=== PATIENT | male | born 1970 | race Caucasian/White ===

== ENCOUNTER 2021-09-18 09:14 | Outpatient (CLI) | payer MEDICARE, MEDICAID, SELFPAY ==
--- NOTE | 2021-09-18 09:00 | RT.EKG_ITS ---
APPROVED REPORT Exam: Resting ECG Reason for Exam: Chest discomfort Patient Location: O HR:80 bpm ECG Measurements Heart Rate 80 AXIS [place] 135 P 57 QRSd 91 QRS 14 QT 376 T 67 QTc 434 Conclusion Sinus rhythm...normal P axis, V-rate 60- 99 Normal Electrocardiogram
== END 2021-09-18 09:15 | disposition home or self-care (01) ==
LOC: DI.CM 09:16
PROVIDERS: PCP Nurse Practitioner Family; Visit Provider Nurse Practitioner Family
DX: R07.89 Other chest pain (principal)
CPT/HCPCS: 93010

== ENCOUNTER 2021-09-18 19:30 | Outpatient (REF) | payer MEDICARE, MEDICAID, SELFPAY ==
[2021-09-18 13:00] LABS: ALT 45 U/L (16-63); AST 31 U/L (15-37); Albumin 4.3 g/dL (3.4-5.0); Alkaline Phosphatase 92 U/L (46-116); Anion Gap 14.9 mmol/L (3-11); BUN 8 mg/dL (7-18); Bilirubin, Total 0.5 mg/dL (0.2-1.0); CO2 23.1 mmol/L (21.0-32.0); Calcium 9.4 mg/dL (8.5-10.1); Calculated LDL 110 mg/dL (<100); Chloride 104 mmol/L (98-107); Cholesterol 198 mg/dL (<200); Glucose 117 mg/dL (74-106); HDL Cholesterol 72 mg/dL (40-60); Potassium 4.3 mmol/L (3.5-5.1); Sodium 142 mmol/L (136-145); TSH 5.77 uIU/mL (0.36-3.74); Total Protein 7.1 g/dL (6.4-8.2); Triglyceride 80 mg/dL (<150)
== END 2021-09-18 19:31 | disposition home or self-care (01) ==
LOC: LBN 19:30
PROVIDERS: PCP Nurse Practitioner Family; Visit Provider Nurse Practitioner Family
DX: I10 Essential (primary) hypertension (principal); E78.2 Mixed hyperlipidemia; R00.0 Tachycardia, unspecified
CPT/HCPCS: 80053; 80061; 84443

== ENCOUNTER 2021-10-15 11:09 | Emergency (ER) | payer MEDICARE, MEDICAID, SELFPAY ==
[2021-10-15] VITALS (44 sets, daily range): BP systolic 114–203; BP diastolic 67–100; PULSE 72–125; RESP 16–41; TEMP 36.6–37.6; O2SAT 94–100
--- NOTE | 2021-10-15 11:00 | RT.EKG_ITS ---
APPROVED REPORT Exam: Resting ECG Reason for Exam: chest pain Patient Location: E HR:118 bpm ECG Measurements Heart Rate 118 AXIS [place] 176 P 67 QRSd 92 QRS 14 QT 318 T 81 QTc 446 Conclusion Sinus tachycardia...rate> 99 Atrial premature complex...SV complex w/ short R-R interval sinus tachycardia, left axis
--- NOTE | 2021-10-15 11:30 | DI.RAD_ITS ---
Exam(s) XR PORTABLE CHEST AP EXAM: XR PORTABLE CHEST AP CLINICAL HISTORY: chest pain, tachycardia. TECHNIQUE: 2D digital imaging was performed. COMPARISON: No exams were available for comparison FINDINGS: Single AP portable view. Heart size is upper normal. The mediastinum is not widened. Lungs are clear. No infiltrates nor obvious pleural effusions. IMPRESSION: No acute pulmonary findings on this single AP portable view of the chest. DATA REPOSITORY: RADIATION DOSE DELIVERED: All CT scans at this facility use at least one of these dose optimization techniques: automated exposure control; mA and/or kV adjustment per patient size (includes targeted e xams where dose is matched to clinical indication); or iterative reconstruction.
[2021-10-15] MEDS: Normal Saline 500 ML 1000 ML IV (11:43)
[2021-10-15] MEDS: Aspirin 325 MG TAB PO (11:48)
[2021-10-15] MEDS: LORazepam 2 MG/ML VIAL IVP (11:48)
[2021-10-15 11:50] LABS: Abs Immature Grans 0.05 10^3/uL (0.0-0.06); Absolute Basophil Count 0.07 10^3/uL (0.0-0.2); Absolute Eosinophil Count 0.02 10^3/uL (0.0-0.7); Absolute Lymphocyte Count 1.97 10^3/uL (1.2-3.4); Absolute Monocyte Count 0.82 10^3/uL (0.1-0.8); Absolute Neutrophil Count 8.46 10^3/uL (1.2-6.7); Basophils % 0.6; Eosinophils % 0.2; HCT 46.6 % (40.0-50.0); Immature Grans % 0.4; Lymphocytes % 17.3; MCH 30.6 pg (27.0-33.0); MCHC 34.3 % (32.0-36.0); MCV 89.1 fL (80-95); MPV 9.4 fL (8.0-11.0); Monocytes % 7.2; Neutrophils % 74.3; Nucleated RBC 0 %; Platelet Count 306 10^3/uL (130-400); RBC 5.23 10^6/uL (4.36-5.78); RDW 12.4 % (11.8-14.1); RDW-SD 40.7 fL; WBC 11.39 10^3/uL (4.4-10.8)
--- NOTE | 2021-10-15 11:57 | ED.GENADUL_ITS ---
Discharge Plan Disposition Patient Disposition: HOME Condition: Improving Discharge Details Chief Complaint: Chest Pain Clinical Impression: Tachycardia, Dehydration, Alcohol withdrawal Primary Care Provider: Binu Douglas ED Provider: Juan Shultz Home Meds and New Rx's Prescriptions: No Action atenolol 50 mg tablet 75 mg PO DAILY Qty: 90 4RF omeprazole 20 mg capsule,delayed release(DR/EC) 20 mg PO DAILY Qty: 30 0RF lisinopril 20 mg tablet 20 mg PO DAILY Qty: 30 0RF buspirone 7.5 mg tablet 7.5 mg PO BID Qty: 30 0RF simvastatin 40 mg tablet 40 mg PO DAILY 90 Days Qty: 90 4RF levothyroxine 100 mcg tablet 100 mcg PO DAILY Qty: 90 0RF Discharge Instructions Instructions: Dehydration (ED), Alcohol Withdrawal (ED) Additional Instructions: Please return to the emergency department for worsening symptoms specifically worsening chest pain shakes/jitteriness, worsening dehydration trouble breathing or any other abnormal symptoms. Please be seen by your primary care doctor. Be sure to stay hydrated and eat well. Medical Decision Making 51-year-old male history of hypertension alcohol abuse hyperlipidemia hypothyroidism presenting with nonexertional anterior chest pain earlier this morning, hypertension tachycardic on arrival, clear lungs, sinus tachycardia on EKG left axis; not requiring supplemental oxygen, no peripheral edema, speaking full sentences, consider alcohol withdrawal versus ACS versus dehydration versus electrolyte abnormality versus less likely PE versus less likely aortic pathology versus must consider new CHF. Labs chest x-ray benzodiazepine fluids close reassessment of symptomatology. Disposition pending reassessment after medication Resting comfortably no acute distress. Heart rate has normalized to 90 bpm sinus rhythm, blood pressure is also normalized. Patient is chest pain-free no respiratory distress. CT unremarkable for PE. 2 troponins are negative. Likely component of dehydration and mild alcohol withdrawal. Patient offered Librium taper however he plans to continue drinking therefore will not prescribe benzo as this could compromise his mental status respiratory status and blood pressure. Given strict return precautions will follow up with his primary care doctor. HPI General Date/Time Provider Initiated Documentation: 10/15/21 11:19 . HPI Narrative: 51-year-old male history of alcohol abuse, hypertension, hyperlipidemia presents with chest pain that began early this morning, denies history of AR or CHF, denies history of thromboembolic disease or risk factors. Denies orthopnea. No cough no fevers. Does endorse 6-12 beers per day chronically, stopped drinking approximately 3 days ago. Did not take any medications patient drove himself here. Does take meds for blood pressure cholesterol and GERD as well as his thyroid. Endorses recent outpatient cardiac evaluation. Heart rate improved after benzos and fluids now 106 sinus tachycardia, blood pressure in 130s, patient resting more comfortably however was noted to be persistently mildly tachypneic, given recent recurrent chest pain tachypnea tachycardia will pursue imaging to assess for PE. Have also added VBG given mild anion gap with hyperglycemia, less likely DKA given age history and presentation. Related Data Home Medications Medication Instructions Recorded Confirmed simvastatin 40 mg tablet 40 mg PO DAILY 90 Days #90 tab-cap 12/03/20 10/15/21 atenolol 50 mg tablet 75 mg PO DAILY #90 tab-cap 12/06/20 10/10/21 levothyroxine 100 mcg tablet 100 mcg PO DAILY #90 tab 09/18/21 10/15/21 omeprazole 20 mg capsule,delayed 20 mg PO DAILY #30 cap 09/18/21 10/15/21 release buspirone 7.5 mg tablet 7.5 mg PO BID #30 tab 10/10/21 10/15/21 lisinopril 20 mg tablet 20 mg PO DAILY #30 tab 10/10/21 10/15/21 Previous Rx's Medication Instructions Recorded simvastatin 40 mg tablet 40 mg PO DAILY 90 Days #90 tab-cap 12/03/20 atenolol 50 mg tablet 75 mg PO DAILY #90 tab-cap 12/06/20 levothyroxine 100 mcg tablet 100 mcg PO DAILY #90 tab 09/18/21 omeprazole 20 mg capsule,delayed 20 mg PO DAILY #30 cap 09/18/21 release buspirone 7.5 mg tablet 7.5 mg PO BID #30 tab 10/10/21 lisinopril 20 mg tablet 20 mg PO DAILY #30 tab 10/10/21 Allergies Allergy/AdvReac Type Severity Reaction Status Date / Time No Known Allergies Allergy Verified 10/15/21 11:17 General Stated Complaint: Chest Pain BLANCHE: 2 Review of Systems Narrative: Review of Systems Constitutional: negative Eyes: negative ENT: negative Cardiovascular: Chest pain Respiratory: negative Gastrointestinal: negative : negative Musculoskeletal: negative Skin: negative Neurologic: negative Psych: negative PFSH All Active Problems (Updated 10/15/21 @ 15:38 by Juan Shultz MD) Dehydration (Acute) Alcohol withdrawal (Acute) Panic anxiety syndrome (Acute) Excessive drinking alcohol (Acute) Benign essential hypertension (Acute 07/06/13) Cardiac arrhythmia (Acute) Hyperlipidemia (Acute 07/06/13) Mental disability (Acute 07/06/13) Smoker (Acute 07/06/13) 2ppd Tachycardia (Acute 07/06/13) Family History Mother Diabetes Essential hypertension Depression Heart disease Hyperlipidemia Stroke 2008 Father Diabetes Heart disease Hyperlipidemia Sister Essential hypertension Hyperlipidemia Brother Essential hypertension Heart disease Hyperlipidemia Sister Essential hypertension Hyperlipidemia Sister No problems noted. Sister Diabetes Essential hypertension Hyperlipidemia Social History Smoking/Tobacco Use Status: Current every day Tobacco Type: cigarettes Smoking risk assessment performed?: Yes Alcohol Intake: former Drug use: Daily Substance use type: marijuana Do you feel safe at home: Yes Do you feel safe in your relationship?: Yes Exam Narrative Exam Narrative: Physical Examination General: alert, awake, cooperative, resting comfortably, no acute distress HEENT: normocephalic, atraumatic; PERRL, EOM intact, conjunctiva normal; no nasal discharge; slightly dry oral mucosa, tolerating secretions Neck: supple, trachea midline; full ROM Chest: normal to inspection Respiratory: normal respiratory effort, speaking in full sentences, clear to auscultation, no wheezing, rales or rhonchi Cardiac: Tachycardia, regular rhythm, S1S2 intact, no murmurs rubs or gallops GI: abdomen soft, non-tender, non-distended; no palpable mass or hepatosplenomegaly Skin: no lesions, rashes or trauma appreciated Neuro: AAOx3, normal speech, moving all extremities; possible mild tremor Psych: Appropriate mood and affect Course Vital Signs Vital signs: Vital Signs Temperature 37.6 C H 10/15/21 11:14 Pulse 124 H 10/15/21 11:14 Respiratory Rate 33 H 10/15/21 11:14 Blood Pressure 203/83 H 10/15/21 11:14 Pulse Oximetry 100 10/15/21 11:14 Temperature 37.6 C H 10/15/21 11:14 Temperature Source Temporal Artery Scan 10/15/21 11:14 Pulse 124 H 10/15/21 11:14 Respiratory Rate 33 H 10/15/21 11:14 Respiratory Effort Incrsd Work of Breathing 10/15/21 11:22 Blood Pressure 203/83 H 10/15/21 11:14 Blood Pressure Position Supine 10/15/21 11:14 Pulse Oximetry 100 10/15/21 11:14 Oxygen Delivery Method Room Air 10/15/21 11:14 Oxygen Flow Rate 0 10/15/21 11:14 Pain Level 7 10/15/21 11:14 Lab/Test Results Lab/Test Results: Laboratory Tests Range/Units 10/15/21 11:22 WBC (4.4-10.8) 10^3/uL 11.39 H RBC (4.36-5.78) 10^6/uL 5.23 Hgb (13.5-17.5) g/dL 16.0 Hct (40.0-50.0) % 46.6 MCV (80-95) fL 89.1 MCH (27.0-33.0) pg 30.6 MCHC (32.0-36.0) % 34.3 RDW (11.8-14.1) % 12.4 Plt Count (130-400) 10^3/uL 306 MPV (8.0-11.0) fL 9.4 Immature Gran % 0.4 Neutrophils % 74.3 Lymphocytes % 17.3 Monocytes % 7.2 Eosinophils % 0.2 Basophils % 0.6 Nucleated RBC % % 0 Absolute Neutrophils (1.2-6.7) 10^3/uL 8.46 H Absolute Lymphocytes (1.2-3.4) 10^3/uL 1.97 Absolute Monocytes (0.1-0.8) 10^3/uL 0.82 H Absolute Eosinophils (0.0-0.7) 10^3/uL 0.02 Absolute Basophils (0.0-0.2) 10^3/uL 0.07 PAWSS Have you Been Recently Intoxicated or Drunk Within the Last 30 days?: Yes Have you Ever Experienced Previous Episodes of Alcohol Withdrawal?: No Have you ever Experienced Withdrawal Seizures?: Yes Have you ever Experienced Delirium Tremens(DT)s?: Yes Have you ever undergone Alcohol Rehabilitation Treatment (i.e, inpt ot outpatient treatment programs)?: Yes Have you ever Experienced Blackouts?: Yes Have you ever Combined Alcohol with other Downers within the last 90 days?: No Have you ever Combined Alcohol with any other Substance of Abuse during the last 90 days?: No Positive Blood Alcohol level on Presentation? [PCS.BAL]: No Evidence of Increased Autonomic Activity (i.e. HR>120, tremor, sweating, agitation, nausea)?: No Result: 5
[2021-10-15 12:12] LABS: PTT Activated 21.9 sec (21.0-27.5); Prothrombin Time 9.6 sec (9.3-11.0)
--- NOTE | 2021-10-15 12:15 | DI.CT_ITS ---
Exam(s) CT CHEST PE CTA EXAM: CT CHEST PE CTA CLINICAL HISTORY: tachy, tachypnea, chest pain. TECHNIQUE: Imaging Protocol: CT angiography of the chest was performed using pulmonary embolus isaac col. Multi planar reconstructions were performed. CONTRAST MATERIAL: Intravenous: Omnipaque 350 Contrast volume: 61 cc COMPARISON: CR XR PORTABLE CHEST AP from 10/15/2021 FINDINGS: CHEST: PULMONARY ARTERIES: There are no intraluminal filling defects to suggest acute pulmonary emboli. LUNGS: There are no infiltrates nor evidence of pulmonary infarction.. There is a small calcified gra nuloma in the lateral right lung. There are no pleural effusions. There are no significant focal fi ndings in the trachea and mainstem bronchi. MEDIASTINUM: There is no hilar nor mediastinal adenopathy. Visualized thyroid unremarkable. CARDIAC: Heart size is upper normal. There is no pericardial effusion.Caliber of the thoracic aorta is within normal limits. There is no significant shift of the interventricular septum. PARTIALLY VISUALIZED UPPERMOST ABDOMEN: No obvious findings OSSEOUS: No significant osseous lesions.. IMPRESSION: 1. No evidence of acute pulmonary emboli. No evidence of pulmonary infarction.No pleural effusions. 2. Small benign 3 millimeter calcified granuloma right lung. No ominous pulmonary nodules. 3. No evidence of aortic dissection nor pericardial effusion. RADIATION DOSE DELIVERED: 283.74mGy.cm Total DLP DATA REPOSITORY: All CT scans at this facility are submitted to the National Radiology Data Registry (NRDR) Dose Index Registry (DIR) with the [employer] (A[employer]). RADIATION OPTIMIZATION: All CT scans at this facility use at least one of these dose optimization te chniques: automated exposure control; mA and/or kV adjustment per patient size (includes targeted exa ms where dose is matched to clinical indication); or iterative reconstruction.
[2021-10-15 12:32] LABS: NT-proBNP 117 pg/mL (<300); Troponin I < 50 ng/L (<or=60)
[2021-10-15 12:35] LABS: ETHANOL BLOOD < 3.0 mg/dL (<10)
[2021-10-15 12:40] LABS: ALT 25 U/L (16-63); AST 10 U/L (15-37); Albumin 3.5 g/dL (3.4-5.0); Alkaline Phosphatase 85 U/L (46-116); Anion Gap 11.4 mmol/L (3-11); BUN 7 mg/dL (7-18); Bilirubin, Total 0.3 mg/dL (0.2-1.0); CO2 22.6 mmol/L (21.0-32.0); Calcium 8.7 mg/dL (8.5-10.1); Chloride 106 mmol/L (98-107); Glucose 212 mg/dL (74-106); Potassium 3.2 mmol/L (3.5-5.1); Sodium 140 mmol/L (136-145); Total Protein 6.8 g/dL (6.4-8.2)
[2021-10-15 12:42] LABS: TSH (W/Ref FT4) 0.69 uIU/mL (0.36-3.74)
[2021-10-15 12:54] LABS: BE (Venous) -1 mmol/L (-2-3); HCO3 (Venous) 24 mmol/L (23-28); O2 Sat (Venous) 88 %; TCO2 (Venous) 21 mmol/L (24-29); pCO2 (Venous) 36 mmHg (41-51); pH (Venous) 7.43 (7.31-7.41); pO2 (Venous) 48 mmHg
[2021-10-15 13:31] LABS: Bilirubin Negative (Negative); Blood Negative (Negative); Clarity Clear (Clear); Glucose 100 mg/dL (Negative); Ketones Negative (Negative); Leukocyte Esterase Negative (Negative); Nitrite Negative (Negative); Urobilinogen 0.2 EU/dL (Up TO 0.2)
[2021-10-15] MEDS: Omnipaque 350 MG/ML 100 ML BTL IJ (13:36)
[2021-10-15] MEDS: Normal Saline Flush 10 ML SYR IVP (13:36)
[2021-10-15 14:16] LABS: *AMPHETAMINES SCREEN URINE Negative (Negative); *BARBITURATES SCREEN URINE Negative (Negative); *BENZODIAZEPINES SCREEN URINE Negative (Negative); Cannabinoids THC Positive (Negative); Cocaine Screen,Urine Negative (Negative); METHADONE URINE SCREEN Negative (Negative); OPIATES URINE SCREEN Negative (Negative)
[2021-10-15 14:19] LABS: Tricyclic Antidepressants Negative (Negative)
[2021-10-15 15:03] LABS: Troponin I < 50 ng/L (<or=60)
== END 2021-10-15 15:43 | disposition home or self-care (01) ==
PROVIDERS: Emergency Provider Emergency Medicine; PCP Nurse Practitioner Family
DX: R00.0 Tachycardia, unspecified (principal); E86.0 Dehydration; R07.9 Chest pain, unspecified; R06.82 Tachypnea, not elsewhere classified; F10.239 Alcohol dependence with withdrawal, unspecified; F10.20 Alcohol dependence, uncomplicated
CPT/HCPCS: 36415; 71275; 80053; 80307; 82805; 93005; 96361; 96374; 99285; 71045; 80320; 81003; 83880; 84443; 84484; 85025; 85610; 85730; 93010; 99284; J2060; J3490

== ENCOUNTER 2022-02-13 12:14 | Emergency (ER) | payer MEDICARE, MEDICAID, SELFPAY ==
[2022-02-13] VITALS (12 sets, daily range): BP systolic 123–163; BP diastolic 66–73; PULSE 81–166; RESP 17–34; TEMP 36.6; O2SAT 95–100
--- NOTE | 2022-02-13 12:15 | RT.EKG_ITS ---
APPROVED REPORT Exam: Resting ECG Reason for Exam: CHEST PAIN Patient Location: E HR:92 bpm ECG Measurements Heart Rate 92 AXIS [place] 131 P 52 QRSd 90 QRS 20 QT 348 T 57 QTc 431 Conclusion Sinus rhythm...normal P axis, V-rate 60- 99
--- NOTE | 2022-02-13 13:18 | ED.GENADUL_ITS ---
Discharge Plan Disposition Patient Disposition: AGAINST MEDICAL ADVICE Discharge Details Clinical Impression: Chest pain Primary Care Provider: Binu Douglas ED Provider: Freddy Camejo Home Meds and New Rx's Prescriptions: No Action buspirone 10 mg tablet 10 mg PO BID Qty: 180 3RF levothyroxine 100 mcg tablet 100 mcg PO DAILY Qty: 90 3RF omeprazole 20 mg capsule,delayed release(DR/EC) 20 mg PO DAILY Qty: 90 3RF simvastatin 40 mg tablet 40 mg PO DAILY 90 Days Qty: 90 3RF lisinopril 30 mg tablet 30 mg PO DAILY Qty: 90 3RF atenolol 50 mg tablet 50 mg PO DAILY Qty: 90 3RF Discharge Instructions Instructions: Against Medical Advice (ED) Additional Instructions: You are leaving AGAINST MEDICAL ADVICE. Diagnostic tests are pending at this time. You may have life-threatening or lifestyle modifying disease that would go undiagnosed and untreated. Please feel free to return to the emergency department at any time for further work-up as recommended. Please follow-up with your primary care physician soon as possible. Referrals: Binu Douglas, [employer] [Primary Care Provider] - Discharge Data Discharge Date/Time-TO BE ENTERED AT DEPARTURE: 02/13/22 14:06 Medical Decision Making 1323 --51-year-old male with history of hypertension, hyperlipidemia, smoker, anxiety disorder, here with chest pain over the past 2 days, worse this morning. Patient is hemodynamically stable. Consider ACS. Screening EKG was reviewed and interpreted by me: 234, nondiagnostic. No STEMI. Sinus rhythm. Plan to check troponin. Patient is mildly tachypneic. He is saturating well in no respiratory distress. Consider pulmonary embolism. Patient is low risk by Wells criteria. I will check D-dimer. -- Initial troponin negative. Plan for continued observation and delta troponin. Patient providing informed refusal of recommended treatment and requesting to leave AGAINST MEDICAL ADVICE. I had a discussion with the patient about my diagnostic/treatment plan. Patient declines plan and wishes to leave against medical advise. I reiterated my concerns to the patient and explained the risks of leaving prior to completion of workup and treatment. I specifically emphasized the possibility of life- threatening or lifestyle modifying disease that would not be appropriately racquel lillian if they leave. Patient verbalized understanding of my concerns and the potential for life threatening or lifestyle modifying disease. Patient has capacity to make informed decision. I again explained my concerns and urged the patient to stay for treatment as outlined. Patient continued to refuse. I then discussed potential less ideal alternatives to diagnostic/treatment plan as outlines and patient refused. I recommended that the patient follow-up with primary care physician MIGUELINA or return to the Emergency Department at any time for further treatment. Lab Data Lab results reviewed: Yes I reviewed the patient's lab results. Labs: Laboratory Tests Range/Units 02/13/22 02/13/22 02/13/22 13:23 13:23 13:23 WBC (4.4-10.8) 10^3/uL 17.46 H RBC (4.36-5.78) 10^6/uL 5.57 Hgb (13.5-17.5) g/dL 16.2 Hct (40.0-50.0) % 47.2 MCV (80-95) fL 85 MCH (27.0-33.0) pg 29.1 MCHC (32.0-36.0) % 34.3 RDW (11.8-14.1) % 13.2 Plt Count (130-400) 10^3/uL 327 MPV (8.0-11.0) fL 9.9 Immature Gran % 0.3 Neutrophils % 79.1 Lymphocytes % 13.1 Monocytes % 6.9 Eosinophils % 0.1 Basophils % 0.5 Nucleated RBC % (0.0-0.3) % 0.0 Absolute Neutrophils (1.2-6.7) 10^3/uL 13.81 H Absolute Lymphocytes (1.2-3.4) 10^3/uL 2.29 Absolute Monocytes (0.1-0.8) 10^3/uL 1.20 H Absolute Eosinophils (0.0-0.7) 10^3/uL 0.02 Absolute Basophils (0.0-0.2) 10^3/uL 0.09 APTT (21.0-27.5) sec 23.0 D-Dimer (<500) ng/mlFEU 271 Sodium (136-145) mmol/L 141 Potassium (3.5-5.1) mmol/L 3.5 Chloride (98-107) mmol/L 103 Carbon Dioxide (21.0-32.0) mmol/L 24.8 Anion Gap (3-11) mmol/L 13.2 H BUN (7-18) mg/dL 10 Creatinine (0.70-1.30) mg/dL 1.1 Estimated GFR/1.73 m2 (mL/min/1.73m2) >= 60.00 Glucose (74-106) mg/dL 150 H Calcium (8.5-10.1) mg/dL 9.3 Magnesium (1.8-2.4) mg/dL 1.8 Total Bilirubin (0.2-1.0) mg/dL 0.4 AST (15-37) U/L 12 L ALT (16-63) U/L 29 Alkaline Phosphatase (46-116) U/L 86 Troponin I (<or=60) ng/L < 50 Total Protein (6.4-8.2) g/dL 7.1 Albumin (3.4-5.0) g/dL 4.0 TSH (0.36-3.74) uIU/mL 0.02 L Free T4 (0.76-1.46) ng/dL 1.66 H Range/Units 02/13/22 02/13/22 13:23 15:45 WBC (4.4-10.8) 10^3/uL RBC (4.36-5.78) 10^6/uL Hgb (13.5-17.5) g/dL Hct (40.0-50.0) % MCV (80-95) fL MCH (27.0-33.0) pg MCHC (32.0-36.0) % RDW (11.8-14.1) % Plt Count (130-400) 10^3/uL MPV (8.0-11.0) fL Immature Gran % Neutrophils % Lymphocytes % Monocytes % Eosinophils % Basophils % Nucleated RBC % (0.0-0.3) % Absolute Neutrophils (1.2-6.7) 10^3/uL Absolute Lymphocytes (1.2-3.4) 10^3/uL Absolute Monocytes (0.1-0.8) 10^3/uL Absolute Eosinophils (0.0-0.7) 10^3/uL Absolute Basophils (0.0-0.2) 10^3/uL APTT (21.0-27.5) sec D-Dimer (<500) ng/mlFEU Sodium (136-145) mmol/L Potassium (3.5-5.1) mmol/L Chloride (98-107) mmol/L Carbon Dioxide (21.0-32.0) mmol/L Anion Gap (3-11) mmol/L BUN (7-18) mg/dL Creatinine (0.70-1.30) mg/dL Estimated GFR/1.73 m2 (mL/min/1.73m2) Glucose (74-106) mg/dL Calcium (8.5-10.1) mg/dL Magnesium (1.8-2.4) mg/dL Total Bilirubin (0.2-1.0) mg/dL AST (15-37) U/L ALT (16-63) U/L Alkaline Phosphatase (46-116) U/L Troponin I (<or=60) ng/L Cancelled Total Protein (6.4-8.2) g/dL Albumin (3.4-5.0) g/dL TSH (0.36-3.74) uIU/mL Cancelled Free T4 (0.76-1.46) ng/dL HPI General Mode of arrival: ambulatory . Date/Time Provider Initiated Documentation: 02/13/22 12:45 . Limitations to Documentation: no limitations . Information obtained by: patient . HPI Narrative: 51yo male with history of panic anxiety syndrome, hypertension, hyperlipidemia, mental disability, smoker, here with chief complaint of chest pain. Patient notes she has had mild chest discomfort over the past 2 days. This morning pain has been more noticeable and persistent since 10:30 AM. Pain is constant although has decreased in intensity from 4/10 now mild. No modifiers. No associated shortness of breath. No associated leg swelling or calf pain. No associated nausea. Patient states he does not believe pain is cardiac etiology. Related Data Home Medications Medication Instructions Recorded Confirmed omeprazole 20 mg capsule,delayed 20 mg PO DAILY #90 caps 11/06/21 02/13/22 release levothyroxine 100 mcg tablet 100 mcg PO DAILY #90 tabs 12/01/21 02/13/22 simvastatin 40 mg tablet 40 mg PO DAILY 90 days #90 tab-caps 12/12/21 02/13/22 buspirone 10 mg tablet 10 mg PO BID #180 tabs 12/18/21 02/13/22 atenolol 50 mg tablet 50 mg PO DAILY #90 tabs 01/01/22 02/13/22 lisinopril 30 mg tablet 30 mg PO DAILY #90 tabs 01/01/22 02/13/22 Previous Rx's Medication Instructions Recorded omeprazole 20 mg capsule,delayed 20 mg PO DAILY #90 caps 11/06/21 release levothyroxine 100 mcg tablet 100 mcg PO DAILY #90 tabs 12/01/21 simvastatin 40 mg tablet 40 mg PO DAILY 90 days #90 tab-caps 12/12/21 buspirone 10 mg tablet 10 mg PO BID #180 tabs 12/18/21 atenolol 50 mg tablet 50 mg PO DAILY #90 tabs 01/01/22 lisinopril 30 mg tablet 30 mg PO DAILY #90 tabs 01/01/22 Allergies Allergy/AdvReac Type Severity Reaction Status Date / Time No Known Allergies Allergy Verified 02/13/22 12:24 General Stated Complaint: Chest Pain BLANCHE: 2 Review of Systems All systems reviewed & are unremarkable except as noted in HPI and below Constitutional Constitutional: Denies fever(s) Cardiovascular Cardiovascular: Reports as per HPI PFSH All Active Problems (Updated 02/13/22 @ 14:01 by Freddy Camejo MD) Chest pain (Acute) Panic anxiety syndrome (Acute) Excessive drinking alcohol (Acute) Quit past 2 months 12/18/21 Benign essential hypertension (Acute 07/06/13) Cardiac arrhythmia (Acute) Hyperlipidemia (Acute 07/06/13) Mental disability (Acute 07/06/13) Smoker (Acute 07/06/13) 2ppd Tachycardia (Acute 07/06/13) Family History Mother Diabetes Essential hypertension Depression Heart disease Hyperlipidemia Stroke 2007 Father Diabetes Heart disease Hyperlipidemia Sister Essential hypertension Hyperlipidemia Brother Essential hypertension Heart disease Hyperlipidemia Sister Essential hypertension Hyperlipidemia Sister No problems noted. Sister Diabetes Essential hypertension Hyperlipidemia Social History Smoking/Tobacco Use Status: Current every day Tobacco Type: cigarettes Tobacco: How many years used: 20 Second Hand Exposure: Yes Smoking risk assessment performed?: Yes Alcohol Intake: former Drug use: Daily Substance use type: marijuana Caregiver/Support person: No Household members: none Housing: other Details: Mobile home Communication Needs: None Do you need help understanding health information?: Often Pets and animals: Yes Pets and animals: cat(s), dog(s) and bird(s) Sexually active: No Current gender identity: male What is your relationship status?: never How often do you talk on the phone with friends or family?: three or more times per week How often do you get together with friends or relatives?: once per week How often do you attend zoroastrianism or rastafari services?: decline to answer Panel score (0-1 are the most socially isolated patients): 1 What type of physical activity do you participate in: none Do you feel safe at home: Yes Do you feel safe in your relationship?: Yes Exam Const General: cooperative and no acute distress HENMT Mouth: moist mucous membranes Eyes Conjunctivae: normal conjunctivae Sclera: normal sclerae Neck Neck: trachea midline and supple Resp Auscultation: clear to auscultation bilaterally, no rales, no rhonchi and no wheezes Cardio Rate: regular rate and not tachycardic Rhythm: regular rhythm Heart Sounds: no murmurs GI Palpation: soft, not firm, no guarding, no masses, not rigid and nontender Skin General skin exam: no rashes or lesions noted Neuro General: patient alert, patient awake, patient oriented x3 and tone normal Extrem General: no edema Psych Appearance: grossly normal Mental Status: mental status grossly normal Speech and Movement: speech and movement normal Course Vital Signs Vital signs: Vital Signs Temperature 36.6 C 02/13/22 12:17 Pulse 100 H 02/13/22 12:17 Respiratory Rate 28 H 02/13/22 12:17 Blood Pressure 163/71 H 02/13/22 12:17 Pulse Oximetry 100 02/13/22 12:17 Temperature 36.6 C 02/13/22 12:17 Temperature Source Temporal Artery Scan 02/13/22 12:17 Pulse 100 H 02/13/22 12:17 Respiratory Rate 21 02/13/22 12:20 Respiratory Effort Labored 02/13/22 12:20 Respiratory Depth Normal 02/13/22 12:20 Respiratory Pattern Normal 02/13/22 12:20 Blood Pressure 163/71 H 02/13/22 12:17 Blood Pressure Position Sitting 02/13/22 12:17 Pulse Oximetry 100 02/13/22 12:17 Oxygen Delivery Method Room Air 02/13/22 12:17 Oxygen Flow Rate 0 02/13/22 12:17 Pain Level 3 02/13/22 12:17
[2022-02-13 13:33] LABS: Abs Immature Grans 0.06 10^3/uL (0.0-0.06); Absolute Basophil Count 0.09 10^3/uL (0.0-0.2); Absolute Eosinophil Count 0.02 10^3/uL (0.0-0.7); Basophils % 0.5; Eosinophils % 0.1; HCT 47.2 % (40.0-50.0); HGB 16.2 g/dL (13.5-17.5); Immature Grans % 0.3; Lymphocytes % 13.1; MCH 29.1 pg (27.0-33.0); MCHC 34.3 % (32.0-36.0); MCV 85 fL (80-95); MPV 9.9 fL (8.0-11.0); Monocytes % 6.9; Neutrophils % 79.1; Platelet Count 327 10^3/uL (130-400); RBC 5.57 10^6/uL (4.36-5.78); RDW 13.2 % (11.8-14.1); RDW-SD 41.1 fL; WBC 17.46 10^3/uL (4.4-10.8)
[2022-02-13 13:34] LABS: Absolute Lymphocyte Count 2.29 10^3/uL (1.2-3.4); Absolute Neutrophil Count 13.81 10^3/uL (1.2-6.7)
[2022-02-13 14:02] LABS: ALT 29 U/L (16-63); AST 12 U/L (15-37); Alkaline Phosphatase 86 U/L (46-116); Anion Gap 13.2 mmol/L (3-11); BUN 10 mg/dL (7-18); Bilirubin, Total 0.4 mg/dL (0.2-1.0); CO2 24.8 mmol/L (21.0-32.0); CREATININE 1.1 mg/dL (0.70-1.30); Calcium 9.3 mg/dL (8.5-10.1); Chloride 103 mmol/L (98-107); Glucose 150 mg/dL (74-106); Magnesium 1.8 mg/dL (1.8-2.4); Potassium 3.5 mmol/L (3.5-5.1); Sodium 141 mmol/L (136-145); TSH (W/Ref FT4) 0.02 uIU/mL (0.36-3.74); Total Protein 7.1 g/dL (6.4-8.2); Troponin I < 50 ng/L (<or=60)
[2022-02-13 14:03] LABS: D-Dimer 271 ng/mlFEU (<500)
[2022-02-13 14:18] LABS: FREE T4 1.66 ng/dL (0.76-1.46)
== END 2022-02-13 14:06 | disposition left against medical advice (07) ==
PROVIDERS: Emergency Provider Student in an Organized Health Care Education/Training Program; PCP Nurse Practitioner Family
DX: R07.89 Other chest pain (principal); R06.82 Tachypnea, not elsewhere classified; I10 Essential (primary) hypertension; F17.210 Nicotine dependence, cigarettes, uncomplicated
CPT/HCPCS: 36415; 80053; 93005; 99283; 83735; 84439; 84443; 84484; 85025; 85379; 85730; 93010; 99284

== ENCOUNTER 2023-12-29 09:34 | Outpatient (CLI) | payer MEDICARE, MEDICAID, SELFPAY ==
[2023-12-29 12:44] LABS: Hemoglobin A1C 5.3 % (<5.7)
[2023-12-29 12:55] LABS: CREATININE 0.9 mg/dL (0.70-1.30); Calculated LDL 176 mg/dL (<100); Cholesterol 253 mg/dL (<200); Estimated GFR 102.76 (mL/min/1.73m2); HDL Cholesterol 55 mg/dL (40-60); Potassium 4.2 mmol/L (3.5-5.1); TSH (W/Ref FT4) 2.13 uIU/mL (0.36-3.74); Triglyceride 111 mg/dL (<150)
== END 2023-12-29 09:35 | disposition home or self-care (01) ==
LOC: LOS 09:35
PROVIDERS: PCP Nurse Practitioner Family; Referring Provider Nurse Practitioner Family; Visit Provider Nurse Practitioner Family
DX: I10 Essential (primary) hypertension (principal); R73.01 Impaired fasting glucose; E03.9 Hypothyroidism, unspecified; E78.5 Hyperlipidemia, unspecified
CPT/HCPCS: 36415; 80061; 82565; 83036; 84132; 84443

== ENCOUNTER 2024-12-29 13:32 | Outpatient (REF) | payer MEDICARE, MEDICAID, SELFPAY ==
[2024-12-29 14:41] LABS: Hemoglobin A1C 5.3 % (<5.7)
[2024-12-29 15:14] LABS: ALT 23 U/L (16-63); AST 18 U/L (15-37); Albumin 4.3 g/dL (3.4-5.0); Alkaline Phosphatase 109 U/L (46-116); Anion Gap 17.5 mmol/L (3-11); BUN 14 mg/dL (7-18); Bilirubin, Total 0.5 mg/dL (0.2-1.0); CO2 20.5 mmol/L (21.0-32.0); CREATININE 0.8 mg/dL (0.70-1.30); Calcium 9.9 mg/dL (8.5-10.1); Calculated LDL 110 mg/dL (<100); Chloride 93 mmol/L (98-107); Cholesterol 177 mg/dL (<200); Estimated GFR 105.82 (mL/min/1.73m2); Glucose 105 mg/dL (74-106); HDL Cholesterol 44 mg/dL (>or=40); Potassium 5.1 mmol/L (3.5-5.1); Sodium 131 mmol/L (136-145); TSH (W/Ref FT4) 0.26 uIU/mL (0.36-3.74); Total Protein 7.1 g/dL (6.4-8.2); Triglyceride 116 mg/dL (<150)
[2024-12-29 15:32] LABS: FREE T4 2.23 ng/dL (0.76-1.46)
[2024-12-29 22:17] LABS: PSA, Screening 0.8 ng/mL (<=3.5)
== END 2024-12-29 13:33 | disposition home or self-care (01) ==
LOC: LBN 13:32
PROVIDERS: PCP Nurse Practitioner Family; Visit Provider Nurse Practitioner Family
DX: E03.9 Hypothyroidism, unspecified (principal); Z12.5 Encounter for screening for malignant neoplasm of prostate; I10 Essential (primary) hypertension
CPT/HCPCS: 80053; 80061; 84153; 83036; 84439; 84443; 88305